=== PATIENT | female | born 1995 | race Caucasian/White ===

== ENCOUNTER 2024-11-11 05:29 | Inpatient (IN) | payer MEDICAID, SELFPAY ==
[2024-11-11] VITALS (31 sets, daily range): BP systolic 112–141; BP diastolic 57–86; PULSE 74–112; RESP 15–23; TEMP 36.4–37.1; O2SAT 97–100; BMI 39.2
[2024-11-11] MEDS: RINGERS LACTATED 1000 ML 1,000 ML 100 ML IV (06:12)
--- NOTE | 2024-11-11 06:15 | ESHP_ITS ---
Documentation for date of: 11/11/24 OB Labor/Induct. HPI History of Present Illness : 1 History of Abortions: Spontaneous and Elective: 0 Date of last menstrual period: 02/10/24 Gestational age based on last menstrual period: 40 History of present illness: Presents for scheduled repeat low-transfer section at 39 weeks and 2 days gestation. Current has been uncomplicated. Patient has a history of one full-term prior delivery in 2019 due to cephalopelvic disproportion. Received care mostly with CNM at [facility], transferred [place] [facility] [place] 3rd trimester for scheduled C- section. dated by ultrasound on 05-06-2024, which placed her at 13 weeks and 2 days. Estimated due date of delivery is 11-16-2024. Diagnostic Test Results and Labs: - Ultrasound (05-06-2024): dated at 13 weeks and 2 days - Initial labs (04-06-2024): - Toxicology screen: Negative - Hemoglobin A1C: 5.3 - NIPT: Negative x3 - AFP: Negative - Blood group: A, Rh-positive with negative antibody screen - Hepatitis A: Negative - Hepatitis B: Surface antigen negative - Hepatitis C: Negative - Gonorrhea and Chlamydia: Negative - Rubella: Non-immune - Urine culture: Showed gram-negative ROTC, treated - 2-hour glucose tolerance test (08-16-2024): Negative - RPR (08-16-2024): Non-reactive - GBS (11-06-2024): Negative History of Present Adequate Care: Yes Labs Labs: Negative: Hepatitis B, HIV, Chlamydia, Gonorrhea and Group Beta Strep Review of Systems Review of Systems Systems Reviewed: All systems reviewed, normal except as documented Meds Home Medications and Allergies Home Medications ?Medication ?Instructions ?Recorded ?Confirmed ?Type vit no.95-ferrous 1 tab PO QDAY 11/11/24 11/11/24 History fumarate 28 mg-folic acid 800 mcg tablet () Allergies Allergy/AdvReac Type Severity Reaction Status Date / Time No Known Allergies Allergy Verified 11/11/24 05:49 OB Exam Physical Exam Vital signs: Pulse BP Pulse Ox 83 114/57 L 100 11/11/24 06:06 11/11/24 06:06 11/11/24 06:13 Narrative: Physical Examination: - General: Alert and oriented x3 - Chest/Lungs: Symmetric, clear to auscultation bilaterally - Abdomen: Gravid, fundal height consistent with gestational age - heart tones: 145 bpm, baseline with moderate variability - Cervical exam: Deferred Constitutional Constitutional: no acute distress Routine HEENT Exam Head: Present normocephalic and atraumatic Eye: Present EOMI and PERRL ENT: Present mucous membranes moist Routine Neck Exam Neck: Present supple and trachea midline Routine Cardiovascular Exam Cardiovascular: Present RRR Routine Abdominal Exam Abdominal: Present soft and normoactive bowel sounds Routine Extremities Exam Extremities: Present full ROM Routine Skin Exam Skin: Present intact, dry and warm Routine Neurological Exam Neurological: Present alert, oriented X3 and CN II-XII intact Routine Psychiatric Exam Psychiatric: Present normal affect and normal thought process OB Assessment & Plan Assessment and Plan (1) Previous delivery affecting : Status: Acute Assessment and plan: : - at 39 weeks and 2 days - Scheduled repeat low-transfer section on 11/11/2024 at 7:30 AM - Admit to inpatient status for procedure - Obtain consent for repeat low-transfer section - team notified - Estimated due date: 11/16/2024 - Uncomplicated current - History of one full-term prior delivery in 2019 due to cephalopelvic disproportion Preoperative Management: - Administer preoperative medications: Ancef 2 grams, Pepcid, Bicetra - IV fluid bolus with LR 1 liter Postoperative/ Management: - Medications placed on hold for hemorrhage prophylaxis as needed Rubella Non-immunity: - 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
[2024-11-11 06:23] LABS: Basophils % (Auto) 0 % (0-2.5); Eosinophils # (Auto) 0.1 Thou/mm3 (0.0-0.5); Eosinophils % (Auto) 1 % (0-10); Mean Corpuscular Volume 81 fL (80-100); Nucleated Red Blood Cell % 0 /100 WBC (0); RDW Standard Deviation 38.5 fL (36.4-46.3)
[2024-11-11 06:25] LABS: Hematocrit 32.5 % (36.0-46.0); Hemoglobin 10.7 g/dL (12.0-16.0); Immature Granulocytes % (Auto) 1 % (0-0); Immature Granulocytes Auto 0.07 Thou/mm3 (0.00-0.00); Lymphocytes # (Auto) 2.4 Thou/mm3 (1.0-4.8); Lymphocytes % (Auto) 30 % (10-50); Mean Corpuscular HGB Conc 32.9 g/dl (31.0-37.0); Mean Corpuscular Hemoglobin 26.6 pg (25.0-35.0); Monocytes # (Auto) 0.3 Thou/mm3 (0.0-0.8); Monocytes % (Auto) 4 % (0-12); Neutrophils # (Auto) 5.2 Thou/mm3 (1.8-7.7); Neutrophils % (Auto) 64 % (37-80); Platelet Count 172 Thou/mm3 (140-440); Red Blood Count 4.03 Miln/mm3 (4.00-5.20); White Blood Count 8.1 Thou/mm3 (3.6-11.0)
[2024-11-11 07:05] LABS: Syphilis Nonreactive (Nonreactive)
[2024-11-11] MEDS: ceFAZolin/D5W 2 GM IV 2 GM/100 ML BAG IV (07:12)
[2024-11-11] MEDS: FAMOTIDINE INJ 10 MG/ML VIAL 2 ML 20 MG IV (07:12)
[2024-11-11] MEDS: METOCLOPRAMIDE INJ 5 MG/ML VIAL 2 ML 10 MG IVP (07:12)
--- NOTE | 2024-11-11 07:38 | PD.GYNPROC ---
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 Identity was confirmed by double identifiers and she was placed on the operating table. Spinal anesthesia was administered and she was positioned in the supine position. The abdomen and perineum were prepped in the usual sterile fashion and a Rebolledo catheter was placed to continuous drainage. Sterile drapes were applied. The incision site was tested for adequacy of anesthesia. A Pfannenstiel skin incision was made with a scalpel and carried to the subcutaneous fat up to the rectus fascia. The rectus fascia was incised on either side of the midline and the incisions were extended bilaterally. The fascia was gently dissected off the ventral surface of the rectus muscle both superiorly and inferiorly. The rectus bellies were gently in the midline and the peritoneum was identified and entered bluntly using the surgeon's finger. The peritoneal opening was now stretched to create an adequate opening for access to the uterus. Juan M O-ring retractor was placed for adequate visualization. The anterior surface of the uterus was palpated. The bladder reflection was identified and a Linh Newby low transverse uterine incision was made in the lower uterine segment taking care to avoid the bladder. Uterine entry was accomplished bluntly and the opening was stretched to create adequate room. The amniotic membranes were now ruptured and clear amniotic fluid was released. The fetus was noted to be in the vertex position. The head was gently elevated out of the maternal pelvis and single loop of nuchal cord was found around the neck. The cord was released and the rest of the shoulders and body were delivered by gentle fundal pressure. Umbilical cord was doubly clamped, divided and the infant was handed over to the waiting team. Cord gas samples were obtained. The placenta was delivered by gentle traction on the umbilical cord. The interior of the uterus was now thoroughly cleaned of all blood and debris and membranes. The hysterotomy angles were grasped by a pair of Allis clamps and the hysterotomy was closed using 1 Monocryl suture in 2 layers. The first layer was used to approximate the muscle in a running locked fashion, the second layer was used to approximate the thickness of the myometrium and uterine serosa in an imbricated manner. Once the repair was completed the hysterotomy was inspected and noted to be adequately hemostatic. The hysterotomy was once again inspected and hemostasis was noted to be satisfactory. The Juan M retractor was now removed. The peritoneal edges were re approximated. The rectus muscles were re approximated. The rectus fascia was now repaired using 0 Vicryl suture in a running fashion. The subcutaneous layer was now copiously irrigated using warm normal saline. All bleeding points were cauterized using the Bovie. The subcutaneous fat was closed using 3-0 Vicryl. The skin was closed using 4-0 Monocryl in a subcuticular fashion. The skin was cleaned and a sterile dressing was applied. The patient was now undraped, the abdomen and back were thoroughly cleaned and she was not transferred to the recovery room in a stable and awake condition. The patient tolerated the entire procedure well. No complications were encountered. All instrument, sponge and lap counts were correct x2. Estimated blood loss (ml): 500 Complications: none Surgical staff Operation Date: 11/11/24 07:45 <No data on this case meets the specified criteria> Diagnosis Discharge Diagnosis (1) Previous delivery affecting : Status: Acute Problem List Completed Was Problem List Reviewed/Reconciled?: Yes
[2024-11-11] MEDS: OXYTOCIN in NS 20 units 20 UNIT/1,000 ML BAG 125 UNIT IV ×2 (08:45→17:12)
[2024-11-11] MEDS: ONDANSETRON INJ 2 MG/ML INJ 2 ML 4 MG IV (10:10)
[2024-11-12] MEDS: KETOROLAC INJ 30 MG/ML VIAL IVP (02:17)
[2024-11-12 04:33] VITALS: BP 107/66; PULSE 71; RESP 19; TEMP 36.9; O2SAT 97
[2024-11-12 05:56] LABS: Basophils % (Auto) 0 % (0-2.5); Eosinophils # (Auto) 0.1 Thou/mm3 (0.0-0.5); Eosinophils % (Auto) 1 % (0-10); Hematocrit 28.6 % (36.0-46.0); Hemoglobin 9.3 g/dL (12.0-16.0); Immature Granulocytes % (Auto) 1 % (0-0); Immature Granulocytes Auto 0.07 Thou/mm3 (0.00-0.00); Lymphocytes # (Auto) 1.9 Thou/mm3 (1.0-4.8); Lymphocytes % (Auto) 14 % (10-50); Mean Corpuscular HGB Conc 32.5 g/dl (31.0-37.0); Mean Corpuscular Hemoglobin 26.5 pg (25.0-35.0); Mean Corpuscular Volume 82 fL (80-100); Monocytes # (Auto) 0.6 Thou/mm3 (0.0-0.8); Monocytes % (Auto) 5 % (0-12); Neutrophils # (Auto) 10.8 Thou/mm3 (1.8-7.7); Neutrophils % (Auto) 80 % (37-80); Nucleated Red Blood Cell % 0 /100 WBC (0); Platelet Count 156 Thou/mm3 (140-440); RDW Standard Deviation 39.8 fL (36.4-46.3); Red Blood Count 3.51 Miln/mm3 (4.00-5.20); White Blood Count 13.5 Thou/mm3 (3.6-11.0)
[2024-11-12 07:24] VITALS: BP 118/77; PULSE 79; RESP 18; TEMP 36.7; O2SAT 98
--- NOTE | 2024-11-12 08:20 | PD.LDDELS ---
Data (Gonzalez) Data : 2 Para: 1 Term: 1 : 0 : 0 Delivery Data (Gonzalez) Labor Data ROM Date: 11/11/24 ROM Time: 08:10 Rupture Type: AROM Amniotic Fluid: Clear Delivery Data Labor Onset Stage 1 Date: 11/11/24 Labor Onset Stage 1 Time: 08:10 Labor Onset Stage 2 Date: 11/11/24 Labor Onset Stage 2 Time: 08:10 Delivery Date: 11/11/24 Delivery Time: 08:10 Placenta Delivery Date: 11/11/24 Placenta Delivery Time: 08:11 Delivered by: Hamlet Pablo Delivery nurse: Herman Cat Other staff at delivery: Baby Care/Fishing Line Winding Machine Operator Other staff at delivery: Saddle And Harness Maker Other staff at delivery: Scrub Other staff at delivery: Other staff at delivery: Kavitha Castro Other staff at delivery: Lisa Valdovinos Other staff at delivery: herve Other staff at delivery: mikey Delivery Method Delivery: Delivery Type: Repeat Anesthesia Type Primary Anesthesia: Spinal [place] Data (Gonzalez) [place] Data Gender: Male Weight Grams: 3905 1 Minute Total: 7 5 Minute Total: 9
--- NOTE | 2024-11-12 08:21 | PD.LDPPPRG ---
Subjective Subjective Interval history: Delivery type: / / OVD Patient doing well this morning. No acute complaints. Ambulating, tolerating p.o. and voiding without difficulty. HTN/Pre-Eclampsia screen: No chest pain, shortness of breath, headache, visual changes, epigastric or right upper quadrant pain. Breast-feeding, lochia diminishing. Bowel: Flatus+/ BM+ UOP: Adequate Exam Vital Signs Temp Pulse Resp BP Pulse Ox O2 Del Method 98.5 F 71 19 107/66 97 Room Air 11/12/24 04:33 11/12/24 04:33 11/12/24 04:33 11/12/24 04:33 11/12/24 04:33 11/12/24 04:33 Constitutional Constitutional: no acute distress Routine HEENT Exam Head: Present normocephalic and atraumatic Eye: Present EOMI and PERRL ENT: Present mucous membranes moist Routine Neck Exam Neck: Present supple and trachea midline Routine Respiratory Exam Respiratory: Present chest non-tender, lungs clear, normal breath sounds and no resp distress Routine Cardiovascular Exam Cardiovascular: Present RRR Routine Abdominal Exam Abdominal: Present soft and normoactive bowel sounds Routine Extremities Exam Extremities: Present full ROM Routine Skin Exam Skin: Present intact, dry and warm Routine Neurological Exam Neurological: Present alert, oriented X3 and CN II-XII intact Routine Psychiatric Exam Psychiatric: Present normal affect and normal thought process Objective Labs 11/12/24 05:00 Labs: Laboratory Results - last 24 hr 11/11/24 11/12/24 06:16 05:00 WBC 13.5 H D RBC 3.51 L Hgb 9.3 L Hct 28.6 L MCV 82 MCH 26.5 MCHC 32.5 RDW Std Deviation 39.8 Plt Count 156 Neut % (Auto) 80 Lymph % (Auto) 14 Beckham % (Auto) 5 Eos % (Auto) 1 Baso % (Auto) 0 Neut # (Auto) 10.8 H Lymph # (Auto) 1.9 Beckham # (Auto) 0.6 Eos # (Auto) 0.1 Baso # (Auto) 0.0 Immature Gran # (Auto) 0.07 H Absolute Nucleated RBC 0.00 Immature Gran % 1 H Nucleated RBC % 0 Blood Type A Positive Antibody Screen NEGATIVE Blood Bank Wristband ID Yes Assessment & Plan Problem List (1) Previous delivery affecting : Status: Acute Assessment and plan: 1. Continue routine /post-op care 2. Labs reviewed, cbc appropriate 3. Remove dressing/Rebolledo 4. Encourage to ambulate, shower 5. Encourage PO intake, breast feeding Time Spent With Patient Time: Total time spent is greater than 50% in coordination of care (as documented) at patient's floor/unit and/or counseling patient:
[2024-11-12] MEDS: Milk Of Magnesia Susp 30 ML UDC PO (11:30)
[2024-11-12] MEDS: SIMETHICONE 80 MG CHEW PO ×2 (11:31→16:01)
[2024-11-12] MEDS: IBUPROFEN TAB 400 MG TABLET 800 MG PO (11:31)
[2024-11-12] MEDS: DOCUSATE SOD 100 MG CAPSULE PO (11:31)
--- NOTE | 2024-11-12 13:59 | CHAP ---
09:30 AM Visited by spiritual care volunteer Provided Baby [facility] and prayer for Patient.
[2024-11-12] MEDS: HYDROcodone/APAP 5/325 TABLET 2 TAB PO (16:01)
[2024-11-12 16:09] VITALS: BP 120/77; PULSE 72; RESP 18; TEMP 36.7; O2SAT 99
== END 2024-11-12 18:10 | disposition home or self-care (01) | DRG 540 ==
LOC: S4SX 05:36 → S4NX 08:08
PROVIDERS: Admitting Provider Obstetrics & Gynecology; PCP Student in an Organized Health Care Education/Training Program; Visit Provider Obstetrics & Gynecology
PROC: 10D00Z1 Extraction of Products of Conception, Low, Open Approach (ICD-10-PCS; CPT 59514; principal; 2024-11-11 07:30)
DX: O34.211 Maternal care for low transverse scar from previous cesarean delivery (principal); O69.81X0 Labor and delivery complicated by cord around neck, without compression, not applicable or unspecified; Z37.0 Single live birth; Z3A.39 39 weeks gestation of pregnancy
CPT/HCPCS: 36415; 85025; 86780; 86850; 86900; 86901; A4649; J0689; J1885; J2274; J2371; J2405; J2590; J2765; J3010; J3490; J7120; A9270; J0690; J1596; J2270

== ENCOUNTER 2025-08-18 03:09 | Emergency (ER) | payer MEDICAID, SELFPAY ==
[2025-08-18 03:10] VITALS: BMI 34.7
--- NOTE | 2025-08-18 03:27 | XR_ITS ---
Examination: Abdomen sonogram, Limited Date and time of exam: August 18, 2025, 0339 hrs. Indications: Abdominal pain beginning 6 hours ago Technique: Real-time morales scale transabdominal sonographic images of the upper abdomen obtained. Findings: Normal gallbladder. Normal common bile duct 0.3 cm Pancreatic head 2.5 cm Liver 14.8 cm no liver lesions Normal hepatopedal portal venous flow Patent IVC Impression: Negative study
[2025-08-18 03:29] VITALS: BP 117/74; PULSE 83; RESP 17; TEMP 37; O2SAT 98
[2025-08-18 03:59] LABS: Collection Type, Urine Clean Catch
[2025-08-18 04:07] LABS: HCG Qualitative,Urine Negative
[2025-08-18 04:23] LABS: Amorphous Crystals,Urine Present (Absent); Bacteria,Urine 4+; Bilirubin,Urine Negative (Negative); Blood,Urine Negative (Negative); Clarity,Urine Clear (Clear/Hazy); Color,Urine Yellow (Lt Yel-Yel); Culture Indicated,Urine Contaminated; Glucose, Urine Negative (Negative); Ketones,Urine Negative (Negative); Leukocyte Esterase,Urine Positive (Negative); Nitrite,Urine Negative (Negative); PH,Urine 7.0 (5.0-7.0); Protein,Urine Trace (Neg - Trace); RBC,Urine 1 /hpf (0-3); Specific Gravity,Urine 1.034 (1.001-1.035); Squamous Epithelial Cell,Urine 16 /hpf (0-5); Urobilinogen,Urine 3.0 mg/dL (0.0-1.0); WBC,Urine 1 /hpf (0-5)
[2025-08-18 04:58] LABS: Red Blood Count 4.68 Miln/mm3 (4.00-5.20); White Blood Count 13.1 Thou/mm3 (3.6-11.0)
[2025-08-18 04:59] LABS: Basophils # (Auto) 0.0 Thou/mm3 (0.0-0.2); Basophils % (Auto) 0 % (0-2.5); Eosinophils # (Auto) 0.1 Thou/mm3 (0.0-0.5); Eosinophils % (Auto) 1 % (0-10); Hematocrit 40.9 % (36.0-46.0); Hemoglobin 13.2 g/dL (12.0-16.0); Immature Granulocytes Auto 0.06 Thou/mm3 (0.00-0.00); Lymphocytes # (Auto) 1.3 Thou/mm3 (1.0-4.8); Lymphocytes % (Auto) 10 % (10-50); Mean Corpuscular HGB Conc 32.3 g/dl (31.0-37.0); Mean Corpuscular Hemoglobin 28.2 pg (25.0-35.0); Mean Corpuscular Volume 87 fL (80-100); Monocytes # (Auto) 0.4 Thou/mm3 (0.0-0.8); Monocytes % (Auto) 3 % (0-12); Neutrophils # (Auto) 11.2 Thou/mm3 (1.8-7.7); Neutrophils % (Auto) 85 % (37-80); Nucleated Red Blood Cell # 0.00 Thou/mm3 (0.00-0.00); Nucleated Red Blood Cell % 0 /100 WBC (0); Platelet Count 217 Thou/mm3 (140-440); RDW Standard Deviation 43.1 fL (36.4-46.3)
[2025-08-18 05:15] LABS: Alanine Aminotransferase 21 U/L (10-49); Albumin, Serum 4.7 gm/dL (3.5-5.0); Albumin/Globulin Ratio 1.5 (1.2-2.2); Alkaline Phosphatase 119 U/L (46-116); Anion Gap 7 (7-16); Aspartate Amino Transferase 16 U/L (0-34); BUN/Creatinine Ratio 16 Ratio (12-20); Bilirubin,Total 0.6 mg/dL (0.3-1.2); Blood Urea Nitrogen 11 mg/dL (9-23); Calcium 9.5 mg/dL (8.3-10.6); Calcium (Corrected) 9.5 mg/dL (8.5-10.1); Carbon Dioxide 27.2 mMol/L (20.0-31.0); Chloride 109 mMol/L (98-107); Creatinine (Component) 0.7 mg/dL (0.6-1.3); Estimated Creatinine Clearance 131.2 mL/min (>60); Globulin 3.1 gm/dL (2.3-3.5); Glucose 107 mg/dL (74-106); Lipase 28 U/L (12-53); Osmolality,Calculated 284 (275-295); Potassium 4.2 mMol/L (3.4-5.1); Sodium 143 mMol/L (136-145); Total Protein 7.8 gm/dL (5.7-8.2); eGFR > 60 See Note
--- NOTE | 2025-08-18 05:23 | PD.EDRME ---
Rapid Medical Screening Exam RME Arrival date/time: 08/18/25 03:09 This is a case of 39-year-old female who came into the emergency room due to abdominal pain nausea vomiting today worsening of the symptoms this patient decided to sought consult here in the emergency room Chief Complaint: Abdominal Pain Time Seen by Provider: 08/18/25 03:25 Vital signs: Vital Signs Temperature 98.6 F 08/18/25 03:29 Pulse Rate 83 08/18/25 03:29 Respiratory Rate 17 08/18/25 03:29 Blood Pressure 117/74 08/18/25 03:29 Pulse Oximetry (%) 98 08/18/25 03:29 Oxygen Delivery Method Room Air 08/18/25 03:29
--- NOTE | 2025-08-18 05:38 | PRELIM_ITS ---
Right upper quadrant abdominal ultrasound. August 18, 2025 0333 hours Clinical history: abd pain Technique: Grayscale and color flow images of the right upper quadrant are provided. Hepatic and portal veins were also imaged with color flow images. Comparison: No prior study is available for comparison. Findings: The liver measures 14.8 cm in length and demonstrates homogeneous echotexture with smooth borders. No intrahepatic biliary ductal dilatation or focal lesion is identified. The gallbladder demonstrates normal wall thickness (0.2 cm). No gallstones, sludge, wall thickening, or pericholecystic fluid are seen. The common bile duct measures 0.3 cm, which is within normal limits. The pancreas, including the head (2.5 cm), is unremarkable to the extent visualized with no evidence of mass. The portal vein demonstrates normal hepatopetal flow. The inferior vena cava is patent. No free fluid is seen. Impression: Unremarkable right upper quadrant ultrasound examination. Report Electronically Signed By: Timmy Soriano 08/18/2025 5:37:17 AM [EST]
--- NOTE | 2025-08-18 06:44 | EDNOTE_ITS ---
Nausea/Vomit./Diarrhea-RME/HPI General Chief complaint: Abdominal Pain Stated complaint: NV AD PAIN Time Seen by Provider: 08/18/25 03:25 Source: patient Arrival date/time: 08/18/25 03:09 29-year-old female with no known medical history presents to the emergency room with a chief complaint of nausea and vomiting x 1 day Mode of arrival: ambulatory Limitations: no limitations RME / HPI RME / HPI Narrative: 08/18/25 03:09 This is a case of 39-year-old female who came into the emergency room due to abdominal pain nausea vomiting today worsening of the symptoms this patient decided to sought consult here in the emergency room Related Data Home Medications ?Medication ?Instructions ?Recorded ?Confirmed vit no.95-ferrous 1 tab PO QDAY 11/11/2410/21 fumarate 28 mg-folic acid 800 mcg tablet () Allergies Allergy/AdvReac Type Severity Reaction Status Date / Time No Known Allergies Allergy Verified 08/18/25 03:15 Review of Systems Review of Systems Systems Reviewed: All systems reviewed, normal except as documented Constitutional Constitutional: Reports system reviewed and no additional complaints, except as documented, Denies fatigue, Denies fever(s), Denies headache(s) and Denies weakness Eyes Eyes: Reports system reviewed and no additional complaints, except as documented, Denies blurry vision and Denies change in vision ENT Ears, Nose, Mouth, and Throat: Reports system reviewed and no additional complaints, except as documented, Denies otalgia, Denies headache(s), Denies nasal congestion, Denies throat swelling and Denies vertigo Cardiovascular Cardiovascular: Reports system reviewed and no additional complaints, except as documented, Denies chest pain, Denies dyspnea and Denies dyspnea on exertion Respiratory Respiratory: Reports system reviewed and no additional complaints, except as documented, Denies chest congestion, Denies cough, Denies dyspnea, Denies dyspnea on exertion and Denies wheezing Gastrointestinal Gastrointestinal: Reports system reviewed and no additional complaints, except as documented, Denies abdominal pain, Denies cramping, Reports nausea and Reports vomiting Genitourinary Genitourinary: Reports system reviewed and no additional complaints, except as documented Musculoskeletal Musculoskeletal: Reports system reviewed and no additional complaints, except as documented and Denies back pain Integumentary/Breasts Skin/Breast: Reports system reviewed and no additional complaints, except as documented and Denies wounds Neurologic Neurologic: Reports system reviewed and no additional complaints, except as documented, Denies confusion, Denies headache(s), Denies lack of coordination, Denies vertigo and Denies weakness Psychiatric Psychiatric: Reports system reviewed and no additional complaints, except as documented, Denies anxiety, Denies confusion, Denies depression, Denies paranoia, Denies suicidal ideation and Denies tactile hallucinations Endocrine Endocrine: Reports system reviewed and no additional complaints, except as documented and Denies fatigue Hematologic/Lymphatic Hematologic/Lymphatic: Reports system reviewed and no additional complaints, except as documented and Denies lymphadenopathy Allergic/Immunologic Allergic/Immunologic: Reports system reviewed and no additional complaints, exce pt as documented, Denies throat swelling, Denies urticaria and Denies wheezing ED Exam General Limitations: Present no limitations General appearance: Present alert and in no apparent distress Head Head exam: Present atraumatic Eye Eye exam: Present normal appearance, PERRL and EOMI ENT ENT exam: Present normal exam, normal oropharynx and mucous membranes moist Neck Neck exam: Present normal inspection, full ROM and trachea midline Chest Chest inspection: Present normal inspection and symmetric chest wall rise Respiratory Respiratory exam: Present normal lung sounds bilaterally Cardiovascular Cardiovascular exam: Present regular rate, normal rhythm and normal heart sounds Abdominal Exam Abdominal exam: Present soft and normal bowel sounds; Absent distention, tenderness, guarding, Waterman's sign, Rovsing's sign or tenderness at McBurney's Point Abdominal tenderness: Present RUQ and mild Extremities Exam Extremities exam: Present normal inspection and full ROM Back Exam Back exam: Present normal inspection and full ROM Neurological Exam Neurological exam: Present alert, oriented X3 and CN II-XII intact Psychiatric Psychiatric exam: Present normal affect and normal mood Skin Skin exam: Present warm, dry, intact and normal color Course Quality Measures none Orders Category Date Time Status US gall bladder Stat Exams 08/18/25 03:27 Taken CBC Stat Lab 08/18/25 04:48 Completed Comprehensive Metabolic Panel Stat Lab 08/18/25 04:48 Completed HCG Qualitative,Urine Stat Lab 08/18/25 03:45 Completed Lipase Stat Lab 08/18/25 04:48 Completed UA, C/S IF [Urinalysis, C/S if Indicated] Stat Lab 08/18/25 03:45 Completed Urinalysis Stat Lab 08/18/25 03:45 Completed Vital Signs Vital signs: Vital Signs Temperature 98.6 F 08/18/25 03:29 Pulse Rate 83 08/18/25 03:29 Respiratory Rate 17 08/18/25 03:29 Blood Pressure 117/74 08/18/25 03:29 Pulse Oximetry (%) 98 08/18/25 03:29 Oxygen Delivery Method Room Air 08/18/25 03:29 Nausea/Vomiting/Diarrhea MDM Narrative MDM Narrative:: 29-year-old female with no known medical history presents to the emergency room with a chief complaint of nausea and vomiting x 1 day Patient is hemodynamically stable and in no apparent distress Physical examination shows some mild right upper quadrant abdominal tenderness that radiates to the epigastric area of her abdomen. Patient had some nausea and some vomiting. There is no right lower quadrant or any tenderness at McBurney's point. CBC CMP were negative for any leukocytosis. Urinalysis was contaminated Ultrasound of the gallbladder was within normal limits Patient was discharged and educated to follow-up with primary care provider in the next 24 to 48 hours and return to the emergency room for any evidence of worsening signs or symptoms Patient data External records reviewed:: [facility] previous records Clinical information provided by:: patient Social determinants that could affect healthcare access:: none Patient has the following chronic illnesses:: No chronic illness How is presenting disease/condition affected by chronic disease/condition?: no chronic disease Evaluation data The following diagnostics were reviewed and interpreted by me:: lab results and radiology exam(s) Lab and/or radiology exams considered but not ordered:: Labs and radiology exams considered and ordered Interpretation Summary: Ultrasound gallbladder-no acute findings Medications / Prescriptions Medications / Prescriptions considered but not ordered:: No medication given Medication administrations:: No medication given Consultations Consultation(s) initiated? (list below): No Diagnosis Nausea Differential Diagnosis: food poisoning, gastroenteritis and dehydration Most likely diagnosis given after review of the tests above:: Gastroenteritis Admission Indicated Admission indicated?: not indicated Admission Request Was there a request for admission?: No Disposition Plan Disposition Plan: Discharge Discharge Attestation Discharge Attestation: The patient and all family members were given an opportunity to ask questions and understood the discharge instructions. Discharge instructions specifically effects, indications for sooner follow up or return to the emergency department, and the expected course of current diagnosis. Patient condition: Stable Discharge Plan Plan Patient Disposition: HOME (Self Care) Discharge Disposition comment: Stable Prescriptions/Referrals Prescriptions/Med Rec: No Action PNV no.95-ferrous fumarate-FA [] 28 mg iron- 800 mcg tablet 1 tab PO QDAY Patient Comments: TOME 1 TABLETA POR V A ORAL TODOS LOS D FOR 90 DAYS Referrals: No Primary/Family,Physician [Primary Care Provider] - In 1 week Problem List Clinical Impression: Gastroenteritis Patient/Caregiver Discharge Instructions Education Materials: ED Gastroenteritis, Noninfectious Additional Instructions: Please follow-up with your primary care provider in the next 24 to 48 hours Your blood work urinalysis and your ultrasound were all within normal limits For any evidence of worsening signs or symptoms return to the emergency room immediately Print Language: Frisian Stand Alone Forms: Delmis Award Info., Work/School Release, Patient Portal Info Letter PA/VISUAL EDUCATOR Supervising Physician PA/EILEEN Supervising Physician: Dr. Mckenzie
[2025-08-18 06:50] VITALS: BP 129/84; PULSE 83; RESP 17; TEMP 36.9; O2SAT 98
== END 2025-08-18 06:56 | disposition home or self-care (01) ==
PROVIDERS: Nurse Practitioner Family; Emergency Provider Emergency Medicine
DX: K52.9 Noninfective gastroenteritis and colitis, unspecified (principal)
CPT/HCPCS: 36415; 76705; 80053; 81001; 81025; 83690; 85025; 99283